=== PATIENT | male | born 1990 | race Caucasian/White ===

== ENCOUNTER 2021-12-02 20:37 | Emergency (ER) | payer BC, OTHER ==
[2021-12-02] MEDS: Ibuprofen 400 MG Tab PO ONE (20:53)
== END 2021-12-02 21:23 | disposition home or self-care (01) ==
LOC: KA.ED 20:37
DX: S93.422A Sprain of deltoid ligament of left ankle, initial encounter (principal); X58.XXXA Exposure to other specified factors, initial encounter
CPT/HCPCS: 73610-LT; 99283; A9270-GY

== ENCOUNTER 2022-08-27 18:58 | Emergency (ER) | payer OTHER ==
[2022-08-27] MEDS: Sodium Chloride 0.9% 10 ML Syringe FLUSH PRN (19:26)
[2022-08-27] MEDS: Ondansetron 4 MG/2 ML SDV IVPUSH ONE (19:31)
[2022-08-27] MEDS: Sodium Chloride 0.9% 1,000 ML IV ONE (19:38)
[2022-08-27 19:58] LABS: ANION GAP 14.4 mmol/L (5-15); CHLORIDE,CL 99 mmol/L (98-107); SODIUM,NA 136 mmol/L (136-145)
[2022-08-27 20:01] LABS: ESTIMATED GFR 102 mL/min (>=60)
[2022-08-27 20:51] LABS: CORONAVIRUS COVID-19 NAA NEGATIVE (NEGATIVE)
[2022-08-27] MEDS: Ondansetron 4 MG Tab.DIS PO ONE (21:08)
== END 2022-08-27 21:14 | disposition home or self-care (01) ==
LOC: KA.ED 18:58
DX: A08.4 Viral intestinal infection, unspecified (principal); E11.65 Type 2 diabetes mellitus with hyperglycemia; Z20.822 Contact with and (suspected) exposure to COVID-19
CPT/HCPCS: 0240U; 71046; 80053; 81001; 83690; 85025; 96361; 96374; 99283; 99284-25; A9270-GY; J2405; J3490; J7030